=== PATIENT | male | born 2000 | race Hispanic/Latino ===

== ENCOUNTER 2019-10-16 22:15 | Emergency (ER) | payer SELFPAY ==
[~2019-10-16] VITALS: Ht 177.8 cm; Wt 102.1 kg
--- NOTE | 2019-10-16 23:30 | Diagnostic Imaging Report ---
SHOULDER 2+VW RT - [facility] - 3 views HISTORY: Pain. COMPARISON: None available. FINDINGS: Bones: No acute displaced fracture. Osseous alignment is within normal limits. Joints: Superior displacement of the clavicle in relation to the acromion x 1.3 cm. The coracoclavicular interval is widened and measures 2.5 cm. Soft tissues: The soft tissues appear unremarkable. IMPRESSION: Findings consistent with type III acromioclavicular separation. No fracture. Signed by: Morgan Cottrell MD on 10/16/2019 11:27 PM
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
== END 2019-10-17 00:22 | disposition home or self-care (01) ==
LOC: FSED 22:15
DX: M25.511 Pain in right shoulder (principal); S43.101A Unspecified dislocation of right acromioclavicular joint, initial encounter; V19.9XXA Pedal cyclist (driver) (passenger) injured in unspecified traffic accident, initial encounter; Y93.55 Activity, bike riding; Y92.488 Other paved roadways as the place of occurrence of the external cause
CPT/HCPCS: 99283